=== PATIENT | female | born 1990 | race Caucasian/White ===

== ENCOUNTER 2020-04-30 12:56 | Inpatient (IN) ==
[2020-04-30] MEDS: Lactated Ringers 1000 ml BAG 1,000 ML IV SCH (14:15)
[2020-04-30 14:33] LABS: ABS Basophils 0.1 10^3/ul (0-0.2); ABS Eosinophils 0.1 10^3/ul (0-0.6); ABS Lymphocytes 2.3 10^3/ul (1.0-4.8); ABS Neutrophils 10.2 10^3/ul (1.5-7.7); Eosinophil % 0.8 %; Hematocrit 34 % (35-47); Hemoglobin 11.8 g/dL (12.0-16.0); Lymphocyte % 16.7 %; Mean Corpuscular HGB Conc 34 g/dL (31-36); Mean Corpuscular Hemoglobin 32 pg (27-31); Mean Corpuscular Volume 92 fL (80-97); Mean Platelet Volume 8.3 fL (7.4-10.4); Platelet Count 325 10^3/uL (150-450); Red Blood Count 3.74 10^6 /uL (3.70-4.87); Red Cell Distribution Width 14 % (10-15); White Blood Count 13.5 10^3/uL (3.5-10.8)
[2020-04-30 14:47] LABS: Urine Appearance Cloudy; Urine Bilirubin Negative (Negative); Urine Blood Negative (Negative); Urine Color Yellow; Urine Glucose Negative (Negative); Urine Ketones Negative (Negative); Urine Nitrite Negative (Negative); Urine Protein Negative (Negative); Urine Specific Gravity 1.013 (1.010-1.030); Urine Urobilinogen Negative (Negative)
[2020-04-30 14:57] LABS: Urine Bacteria 1+ (Absent); Urine Red Blood Cell Absent (Absent); Urine Squamous Epithelial Cell Present (Absent); Urine White Blood Cell Trace(0-5/hpf) (Absent)
[2020-04-30 15:28] LABS: Albumin 3.6 g/dL (3.2-5.2); Albumin/Globulin Ratio 1.2 (1-3); BUN/Creatinine Ratio 20.7 (8-20); Calcium 9.7 mg/dL (8.6-10.3); EGFR African American 149.8 (>60); EGFR Non-African American 123.8 (>60); Potassium 4.2 mmol/L (3.5-5.0); Total Bilirubin 0.7 mg/dL (0.2-1.0); Total Protein 6.6 g/dL (6.4-8.9)
[2020-04-30 15:33] LABS: Urine Benzodiazepine Screen None Detected (None Detect); Urine Cannabinoids Screen None Detected (None Detect); Urine Opiates Screen None Detected (None Detect)
[2020-05-01] MEDS ORDERED: Morphine 10 MG/ML VIAL (1 ml) IV ONE ×2 (01:58→02:30)
[2020-05-01] MEDS ORDERED: Promethazine INJ(RESTRICTED) 25 MG/ML 1 ml VIAL IV ONE ×2 (02:01→02:32)
[2020-05-01] MEDS: Lactated Ringers 1000 ml BAG 1,000 ML IV SCH ×2 (16:52→19:39)
[2020-05-01] MEDS ORDERED: OBEPIDURAL 250 ML EPIDURAL ONE (17:09)
[2020-05-01] MEDS ORDERED: fentaNYL 100 mcg/2 ml 50 MCG/ML VIAL ONE (17:40)
[2020-05-01] MEDS ORDERED: Sodium Citrate/Citric Acid LIQ 15 ML UDC PO PRN (18:41)
[2020-05-01] MEDS ORDERED: Phenylephrine 40 mcg/mL 10mL (400mcg) SYRINGE IV PUSH PRN ×2 (18:41)
[2020-05-01] MEDS ORDERED: EPHEDrine (Pressors) 50 MG/ML VIAL IV PUSH PRN ×2 (18:41)
[2020-05-01] MEDS ORDERED: Lactated Ringers 1000 ml BAG 1,000 ML IV ONE (18:41)
[2020-05-01] MEDS ORDERED: Lactated Ringers 1000 ml BAG 500 ML IV PRN ×2 (18:41)
[2020-05-01] MEDS ORDERED: OBEPIDURAL 250 ML EPIDURAL SCH (19:00)
[2020-05-02] MEDS ORDERED: Ondansetron 4 mg VIAL 2 MG/ML 2 ml VIAL ONE (01:38)
[2020-05-02] MEDS: Lactated Ringers 1000 ml BAG 1,000 ML IV SCH (01:44)
[2020-05-02] MEDS ORDERED: Oxytocin in LR 20 UNITS/1,000 ML BAG IVPB ONE (01:46)
[2020-05-02] MEDS ORDERED: Witch Hazel PAD JAR ONE (04:55)
[2020-05-02] MEDS ORDERED: Dibucaine 1% OINT 28.35 GM TUBE ONE (04:55)
[2020-05-02] MEDS ORDERED: Glycerin ADULT 2.4 gm SUPP PR PRN (05:24)
[2020-05-02] MEDS ORDERED: Witch Hazel PAD JAR TOPICAL PRN (05:24)
[2020-05-02] MEDS ORDERED: Dibucaine 1% OINT 28.35 GM TUBE PR PRN (05:24)
[2020-05-02] MEDS ORDERED: Oxytocin in LR 20 UNITS/1,000 ML BAG IVPB SCH (06:00)
[2020-05-02] MEDS ORDERED: Lactated Ringers 1000 ml BAG 1,000 ML IV SCH (06:00)
[2020-05-02] MEDS ORDERED: Lidocaine 1% VIAL 10 MG/ML VIAL ONE (07:56)
[2020-05-03 06:39] LABS: ABS Basophils 0.1 10^3/ul (0-0.2); ABS Eosinophils 0.3 10^3/ul (0-0.6); ABS Lymphocytes 3.7 10^3/ul (1.0-4.8); ABS Monocytes 1.1 10^3/ul (0-0.8); ABS Neutrophils 9.6 10^3/ul (1.5-7.7); Hematocrit 28 % (35-47); Hemoglobin 9.2 g/dL (12.0-16.0); Lymphocyte % 24.7 %; Mean Corpuscular HGB Conc 33 g/dL (31-36); Mean Corpuscular Hemoglobin 31 pg (27-31); Mean Corpuscular Volume 95 fL (80-97); Nucleated Red Blood Cells % 0.1; Platelet Count 315 10^3/uL (150-450); Red Blood Count 2.99 10^6 /uL (3.70-4.87); Red Cell Distribution Width 14 % (10-15); White Blood Count 14.8 10^3/uL (3.5-10.8)
[2020-05-03 08:09] VITALS: BP 119/66
== END 2020-05-03 14:34 | disposition home or self-care (01) | DRG 560 ==
LOC: MCHOBOUT 12:56 → MCHOB 13:11
PROVIDERS: ADMIT Midwife; ATTEND Midwife